=== PATIENT | female | born 1965 | race Caucasian/White ===

== ENCOUNTER → 2022-12-29 15:52 | Outpatient (CLI) | payer OTHER, SELFPAY ==
[2022-12-29 17:01] LABS: Add Manual Diff / Slide Review NO; Basophils Absolute Auto 0 /uL (0-100); Basophils Percent Auto 0.4 % (0-2); Eosinophils Absolute Auto 300 /uL (0-450); Eosinophils Percent Auto 4.2 % (2-4); Hematocrit 38.7 % (36-46); Hemoglobin 12.9 g/dL (12.0-16.0); Lymphocytes Absolute Auto 2600 /uL (1100-4500); Mean Corpuscular HGB Conc 33.3 % (30-36); Mean Corpuscular Hemoglobin 28.4 PG (26-34); Mean Corpuscular Volume 85.2 fL (80-100); Monocytes Absolute Auto 500 /uL (0-900); Monocytes Percent Auto 7.1 % (3-14); Neutrophils Absolute Auto 3400 /uL (1500-7000); Neutrophils Percent Auto 50.3 % (50-75); Platelet Count 189 X10^3/uL (150-400); Red Blood Cell Count 4.54 X10^6/uL (4.0-5.2); Red Cell Distribution Width 13.5 % (11.6-14.8); White Blood Cell Count 6.7 X10^3/uL (4.5-11.0)
[2022-12-29 17:22] LABS: Alanine Aminotransferase 22 IU/L (<35); Albumin 4.1 g/dL (3.5-5.0); Albumin Globulin Ratio 1.4 (1.0-2.8); Alkaline Phosphatase 72 U/L (38-126); Aspartate Aminotransferase 33 IU/L (14-36); BUN Creatinine Ratio 27.5 (6-22); Bilirubin Total 0.7 mg/dL (0.2-1.3); Blood Urea Nitrogen 19 mg/dL (7-17); Calcium 8.8 mg/dL (8.4-10.2); Carbon Dioxide 26 mmol/L (22-32); Chloride 107 mmol/L (98-107); Cholesterol 193 mg/dL (140-199); Estimated Glomerular Filt Rate > 60 mL/min (>60); Glucose 86 mg/dL (70-100); HDL Cholesterol 61 mg/dL (40-60); HEMOLYSIS < 15 (0-50); LDL Cholesterol Calculated 106 mg/dL (<100); Potassium 4.3 mmol/L (3.4-5.1); Sodium 140 mmol/L (137-145); Total Protein 7.1 g/dL (6.3-8.2); Triglycerides 131 mg/dL (35-150)
[2022-12-29 18:38] LABS: Hemoglobin A1C% w Est Avg Glu 5.7 % (4.0-6.0)
== END ==
PROVIDERS: PCP Family Medicine; Referring Provider Family Medicine; Visit Provider Family Medicine
DX: Z00.00 Encounter for general adult medical examination without abnormal findings (principal); Z13.1 Encounter for screening for diabetes mellitus; Z13.220 Encounter for screening for lipoid disorders; N95.2 Postmenopausal atrophic vaginitis; N32.81 Overactive bladder
CPT/HCPCS: 36415; 80053; 80061; 83036; 85025

== ENCOUNTER 2023-01-19 13:16 | Day surgery (SDC) | payer OTHER, SELFPAY ==
[2023-01-19 14:33] VITALS: BMI 22.4
--- NOTE | 2023-01-19 14:45 | PM.HP.1 ---
History of Present Illness History of Present Illness Date Patient Seen: 01/19/23 Chief complaint: Screening Colonoscopy Narrative: Need for screening colonoscopy Patient History Medical History (Updated 01/11/23 @ 20:06 by Elena Estevez) Ankle pain Carpal tunnel syndrome Foot pain History of urinary incontinence Hyperlipidemia Menopause OAB (overactive bladder) Surgical History (Updated 01/11/23 @ 20:06 by Elena Estevez) Anesthesia History of breast biopsy (~1977) History of colonoscopy (~2013) Family & Social History Family History (Updated 01/11/23 @ 20:09 by Elena Estevez) Grandfather Sepsis Grandmother Tuberculosis Grandfather Suicide Grandmother Diverticulitis Tobacco & Substance use: Smoking Status Former smoker Meds Home Medications and Allergies Home Medications Medication Instructions Recorded Confirmed Type estradiol 0.01% (0.1 mg/gram) 0.5 appful vaginal DAILY #42.5 12/29/22 01/19/23 Rx vaginal cream grams oxybutynin chloride 5 mg 5 mg PO DAILY bladder #90 tabs 12/29/22 01/19/23 Rx tablet,extended release 24 hr Allergies Allergy/AdvReac Type Severity Reaction Status Date / Time Penicillins AdvReac Severe rash Verified 01/19/23 14:29 Exam Narrative Exam Narrative: Oropharynx free of lesion Chest clear to auscultation percussion Cardiac exam reveals no S3 or murmur Assessment & Plan Assessment & Plan narrative: Need for colorectal cancer screening. Risks, benefits, alternatives have been explained. Time Spent With Patient Critical Care time: I spent a total of [] minutes of critical care time on this patient's care today; this time is exclusive of procedural time.
--- NOTE | 2023-01-19 14:46 | PM.OP.COLON ---
Operative Date/Time/Diagnoses Date of procedure: 01/19/23 Pre-op diagnosis: See indication and findings Procedure & Clinicians Study performed: Colonoscopy Indications: Need for colorectal cancer screening Surgeon: Lizet Otero Procedure Notes Procedure in detail: After informed consent was obtained the patient was placed in left lateral decubitus position. The video colonoscope was introduced in the rectum slowly advanced cecum. Preparation was good. On slow withdrawal mucosa was carefully examined. The scope was removed. The patient tolerated procedure well. Blood loss none Complications none Sedation propofol Findings 1. Sigmoid diverticulosis 2. Otherwise negative colonoscopy to cecum Ms. Mendoza should have follow-up colonoscopy in 10 years
[2023-01-19 15:10] VITALS: BP 114/72; PULSE 65; RESP 16; TEMP 37; O2SAT 99
[2023-01-19 16:04] VITALS: BP 91/54; PULSE 65; RESP 14; TEMP 36.2; O2SAT 97
[2023-01-19 16:14] VITALS: BP 107/64; PULSE 66; RESP 13; TEMP 36.6; O2SAT 99
[2023-01-19 16:20] VITALS: BP 110/65; PULSE 66; RESP 14; TEMP 36.4; O2SAT 98
[2023-01-19 16:30] VITALS: BP 118/70; PULSE 65; RESP 16; TEMP 36.6; O2SAT 99
== END 2023-01-19 16:36 | disposition home or self-care (01) ==
PROVIDERS: PCP Family Medicine; Referring Provider Internal Medicine Gastroenterology; Visit Provider Internal Medicine Gastroenterology
PROC: 0DJD8ZZ Inspection of Lower Intestinal Tract, Via Natural or Artificial Opening Endoscopic (ICD-10-PCS; CPT 45378; principal; 2023-01-19 15:30)
DX: Z12.11 Encounter for screening for malignant neoplasm of colon (principal); K57.30 Diverticulosis of large intestine without perforation or abscess without bleeding
CPT/HCPCS: 45378; J2704

== ENCOUNTER → 2023-01-28 14:08 | Outpatient (CLI) | payer OTHER, SELFPAY ==
--- NOTE | 2023-01-28 14:10 | DI.MG.S_ITS ---
BILATERAL DIGITAL SCREENING MAMMOGRAM 3D/2D WITH CAD: 01/28/2023 CLINICAL: Routine screening. Comparison is made to exam dated: 02/03/2022 mammogram - Outside facility. There are scattered areas of fibroglandular density in both breasts (category b / 25%-50% glandular tissue). Current study was also evaluated with a Computer Aided Detection (CAD) system. No significant masses, calcifications, or other findings are seen in either breast. There has been no significant interval change. IMPRESSION: NEGATIVE There is no mammographic evidence of malignancy. A 1 year screening mammogram is recommended. Based on the Tyrer Cuzick model (a risk assessment model) the patient's lifetime risk is 8.4% and her 10 year risk is 3.3%. According to the ACR, ACS, and NCCN guidelines, an annual breast MRI exam along with mammogram is recommended if the patient's lifetime risk is 20% or greater. This exam was interpreted at Station ID: [id number]. NOTE: For mammograms, a report in lay terms will be sent to the patient. Approximately 15% of breast malignancies will not be visualized mammographically. In the management of a palpable breast mass, a negative mammogram must not discourage biopsy of a clinically suspicious lesion. Electronically Signed By: Paulo [email or web address]/[email or web address]:01/28/2023 15:50:18 letter sent: Normal Exam ACR BI-RADS Category 1: Negative [id number]
== END ==
PROVIDERS: PCP Family Medicine; Referring Provider Family Medicine; Visit Provider Family Medicine
DX: Z12.31 Encounter for screening mammogram for malignant neoplasm of breast
CPT/HCPCS: 77063; 77067